=== PATIENT | female | born 1960 | race Caucasian/White ===

== ENCOUNTER 2019-09-08 13:55 | Emergency (ER) | payer SELFPAY ==
[2019-09-08 13:56] VITALS: BP 160/94; PULSE 73; RESP 18; TEMP 36.1; O2SAT 94; BMI 23.8
--- NOTE | 2019-09-08 14:08 | XRR_ITS ---
PROCEDURE INFORMATION: Exam: XR Right Wrist Exam date and time: 09/08/2019 2:20 PM Age: 59 years old Clinical indication: Injury or trauma; Initial encounter; Blunt trauma (contusions or hematomas; Right; Patient HX: C/O R wrist pain after fall last night TECHNIQUE: Imaging protocol: XR Right wrist. Views: 1 or 2 views. COMPARISON: No relevant prior studies available. FINDINGS: Bones/joints: Normal. No fracture evident. Soft tissues: Normal. XR/XR wrist RT 2V [id number] IMPRESSION: No acute findings.
--- NOTE | 2019-09-08 14:08 | XRR_ITS ---
PROCEDURE INFORMATION: Exam: XR Right Forearm Exam date and time: 09/08/2019 2:10 PM Age: 59 years old Clinical indication: Injury or trauma; Initial encounter; Blunt trauma (contusions or hematomas; Arm, lower; Right; Patient HX: C/O R wrist/forearm pain after fall last night TECHNIQUE: Imaging protocol: XR Right forearm. Views: 2 views. COMPARISON: No relevant prior studies available. FINDINGS: Bones/joints: Normal. No fracture evident. Soft tissues: Normal. XR/XR forearm RT 2V [id number] IMPRESSION: No acute findings.
[2019-09-08] MEDS: HYDROcodone-acetaminophen 5-325 mg Tablet 1 TAB PO (14:15)
--- NOTE | 2019-09-08 14:34 | W.ED.EXTPRO ---
HPI - Extremity Problem General: Chief complaint: Extremity Injury, Upper Stated complaint: arm pain Time Seen by Provider: 09/08/19 14:00 Source: patient Mode of arrival: ambulatory Limitations: no limitations History of Present Illness: HPI Narrative: fell while weedeating yesterday night onto right forearm Complaint: extremity pain Onset (ago): day(s) (1) Severity scale (1-10): 8 Review of Systems Musc: Reports: extremity swelling (right forearm) PFSH ED PFSH: Surgical History H/O section Hx of tonsillectomy Social History Smoking and tobacco status: former smoker Quit status (tobacco): has quit using tobacco Physical Exam Const: COMMON NORMALS: no apparent distress, oriented x3, no limitations and alert GENERAL APPEARANCE: cooperative and comfortable ORIENTATION/CONSCIOUSNESS: Yes awake, Yes oriented to person, Yes oriented to place and Yes oriented to time HENMT: COMMON NORMALS: normocephalic, head/scalp atraumatic, external ears normal, EAC's normal, TM's normal bilaterally and external nose normal HEAD & SCALP: normal to inspection, normocephalic and atraumatic FACE & SINUS: normal facial exam, sinuses nontender and face symmetric NOSE: external nose normal, nares normal and no nasal discharge EXTERNAL EAR: Yes external ears normal EXTERNAL AUDITORY CANAL: EAC's normal TYMPANIC MEMBRANE: TM's normal bilaterally MOUTH: oral and palatal mucosa normal, lip normal and tongue normal THROAT: posterior oropharynx normal, tonsils normal and uvula midline Eye: COMMON NORMALS: PERRL, EOMs intact bilaterally and conjunctivae normal GENERAL EYE: normal appearance of both eyes and normal light reflex EYELID: eyelids normal CONJUNCTIVA: Yes conjunctivae normal PUPIL: Yes PERRL EOM: Yes EOM abnormal DIRECT OPHTHALMOSCOPY: Yes normal light reflex Neck/C-Spine: COMMON NORMALS: full ROM, no lymphadenopathy, supple, no meningeal signs, no JVD and thyroid normal GENERAL: Yes normal visual inspection THYROID: thyroid normal CERVICAL SPINE: Yes cervical ROM normal and Yes normal cervical lordosis Lymph: LYMPHATIC: no lymphadenopathy noted Chest: COMMONS NORMALS: inspection of chest normal and palpation of chest normal Resp: COMMON NORMALS: normal respiratory effort, no retractions and clear to auscultation bilaterally AUSCULTATION: clear to auscultation bilaterally Cardio: COMMON NORMALS: no JVD, regular rate, regular rhythm, S1 normal heart sound, S2 normal heart sound, no gallops, no clicks, no murmurs, no rub and peripheral pulses 2+ throughout RATE: regular rate RHYTHM: regular rhythm HEART SOUNDS: S1 normal and S2 normal PERIPHERAL PULSES: pulses 2+ throughout GI: COMMON NORMALS: normal to inspection, nondistended, normoactive bowel sounds, soft to palpation, non-tender and no masses PALPATION: Yes soft : COMMON NORMALS: Yes no CVA tenderness and Yes external appearance normal BLADDER/KIDNEY EXAM: Yes no CVA tenderness Back/Pelvis: COMMON NORMALS: no CVA tenderness, thoracic and lumbar spine normal to inspection, no thoracic nor lumbar tenderness and thoraco-lumbar ROM normal Extremity: COMMON NORMALS: normal to inspection, full ROM, normal capillary refill, no joint enlargement, no clubbing, cyanosis or edema, no calf tenderness and no pedal edema GENERAL: Yes normal exam except as noted RIGHT UPPER EXTREMITY: Yes lower arm (pain and swelling ) EXTREMITY IMAGE (FRONT): 1. pain, swelling, mild deformity Neuro: COMMON NORMALS: oriented x3, moves all extremities, no focal motor deficits, no sensory deficits noted and gait normal SENSORIUM/ORIENTATION: Yes alert, Yes oriented to person, Yes oriented to place and Yes oriented to time MENINGEAL SIGNS: Yes no meningeal signs Psych: COMMON NORMALS: mental status grossly normal, thought process normal, cooperative, affect normal, speech normal and activity/motor behavior normal SPEECH: Yes normal speech THOUGHT PROCESS: normal thought process Skin: COMMON NORMALS: no rashes or lesions noted, no wounds and skin turgor normal GENERAL SKIN EXAM: no rashes or lesions noted and turgor normal Course ED course: Awaiting xrays at this time. Pain meds ordered. Pt able to move fingers but not without pain. Mild deformity noted in right forearm. Vital Signs: Vital signs: Vital Signs Temperature 97.0 F L 09/08/19 13:56 Pulse Rate 73 09/08/19 13:56 Respiratory Rate 18 09/08/19 13:56 Blood Pressure 160/94 09/08/19 13:56 Pulse Oximetry 94 09/08/19 13:56 MDM - Extremity (Nontraumatic) Imaging Data^: Other Xray: Radiologist's impression: [address] [address] XRay Report Signed Patient: Deya Fields Unit #: [id number] : 1960 Age/Sex: 59 / F ADM Date: 09/08/19 Loc: ER Room/Bed: Attending Dr: Ordering Provider/Ordering MD: Aileen Martínez TECHNOLOGY SALES SPECIALIST Date of Service: 09/08/19 Procedure(s): XR wrist RT 2V 74501 Accession Number(s): [id number] Report Number: [id number] PROCEDURE INFORMATION: Exam: XR Right Wrist Exam date and time: 09/08/2019 2:20 PM Age: 59 years old Clinical indication: Injury or trauma; Initial encounter; Blunt trauma (contusions or hematomas; Right; Patient HX: C/O R wrist pain after fall last night TECHNIQUE: Imaging protocol: XR Right wrist. Views: 1 or 2 views. COMPARISON: No relevant prior studies available. FINDINGS: Bones/joints: Normal. No fracture evident. Soft tissues: Normal. XR/XR wrist RT 2V [id number] IMPRESSION: No acute findings. Dictated By: Prashant Pantoja MD Signed By: Prashant Pantoja MD Signed Date/Time: 09/08/191433 DD/ [address] [place] [id number] XRay Report Signed Patient: Deya Fields Unit #: [id number] : 1960 Age/Sex: 59 / F ADM Date: 09/08/19 Loc: ER Room/Bed: Attending Dr: Ordering Provider/Ordering MD: Aileen Martínez TECHNOLOGY SALES SPECIALIST Date of Service: 09/08/19 Procedure(s): XR forearm RT 2V [id number] Accession Number(s): [id number] Report Number: [id number] PROCEDURE INFORMATION: Exam: XR Right Forearm Exam date and time: 09/08/2019 2:10 PM Age: 59 years old Clinical indication: Injury or trauma; Initial encounter; Blunt trauma (contusions or hematomas; Arm, lower; Right; Patient HX: C/O R wrist/forearm pain after fall last night TECHNIQUE: Imaging protocol: XR Right forearm. Views: 2 views. COMPARISON: No relevant prior studies available. FINDINGS: Bones/joints: Normal. No fracture evident. Soft tissues: Normal. XR/XR forearm RT 2V [id number] IMPRESSION: No acute findings. Dictated By: Prashant Pantoja MD Signed By: Prashant Pantoja MD Signed Discharge Plan Discharge Patient Disposition: Home, Self-Care Clinical Impression: Sprain and strain of wrist Condition: Stable Prescriptions: New tramadol 50 mg tablet 50 mg PO BID PRN (Reason: pain) Qty: 10 RF: 0 No Action albuterol sulfate [Ventolin HFA] 90 mcg/actuation HFA aerosol inhaler 2 - 4 puff INHALATION Q6H PRN (Reason: Shortness Of Breath) RF: 0 citalopram 40 mg tablet 40 mg PO DAILY RF: 0 buspirone 10 mg tablet 10 mg PO BID PRN (Reason: unknown) RF: 0 fluticasone propion-salmeterol [Advair Diskus] 250-50 mcg/dose blister with device 1 inh INHALATION BID Qty: 60 RF: 3 Referrals: Houston Cano FNP [Primary Care Provider] - Discharge Diet: Usual diet Discharge Activity: Increase activity as tolerated Activity Restrictions/Additional Instructions: Rest, ICE, elevate, and sling for the next 24 hours. Pain meds as needed for pain. Follow up with your doctor if not improving by next week. NSAIDs to help with swelling. Coding Level of Care Code ED Supervisor Costuming for Kaylynn Fwsvitlana Exam Comprehensive
[2019-09-08 15:18] VITALS: BP 136/80; PULSE 63; RESP 16; O2SAT 94
== END 2019-09-08 15:19 | disposition home or self-care (01) ==
PROVIDERS: Emergency Provider Nurse Practitioner Family; Family Provider Registered Nurse; PCP Registered Nurse
DX: S63.501A Unspecified sprain of right wrist, initial encounter (principal); S66.911A Strain of unspecified muscle, fascia and tendon at wrist and hand level, right hand, initial encounter; W19.XXXA Unspecified fall, initial encounter; Z87.891 Personal history of nicotine dependence
CPT/HCPCS: 12345; 73090; 73100; 99281; 99283

== ENCOUNTER → 2020-01-25 11:20 | Outpatient (BNVA) | payer SELFPAY | PROVIDERS: Family Provider Registered Nurse; PCP Registered Nurse; Visit Provider Nurse Practitioner Family | DX: E78.5 Hyperlipidemia, unspecified (principal); R03.0 Elevated blood-pressure reading, without diagnosis of hypertension; I10 Essential (primary) hypertension | CPT/HCPCS: 80053; 80061 ==

== ENCOUNTER → 2020-07-03 10:11 | Outpatient (BNVA) | payer OTHER, SELFPAY | PROVIDERS: Family Provider Registered Nurse; PCP Registered Nurse; Visit Provider Nurse Practitioner Family | DX: Z20.828 Contact with and (suspected) exposure to other viral communicable diseases (principal) | CPT/HCPCS: 87635 ==

== ENCOUNTER → 2020-08-14 11:19 | Outpatient (BNVA) | payer SELFPAY | PROVIDERS: Family Provider Registered Nurse; PCP Registered Nurse; Visit Provider Nurse Practitioner Family | DX: F41.9 Anxiety disorder, unspecified (principal); I10 Essential (primary) hypertension | CPT/HCPCS: 80053; 80061 ==

== ENCOUNTER → 2021-11-03 14:10 | Outpatient (BNVA) | payer OTHER, SELFPAY | PROVIDERS: Family Provider Registered Nurse; PCP Registered Nurse; Visit Provider Registered Nurse | DX: Z12.83 Encounter for screening for malignant neoplasm of skin (principal) | CPT/HCPCS: 88305 ==

== ENCOUNTER → 2022-02-23 13:42 | Outpatient (BNVA) | payer OTHER, SELFPAY | PROVIDERS: Family Provider Registered Nurse; PCP Student in an Organized Health Care Education/Training Program; Visit Provider Registered Nurse | DX: J30.2 Other seasonal allergic rhinitis (principal); R09.89 Other specified symptoms and signs involving the circulatory and respiratory systems; J06.9 Acute upper respiratory infection, unspecified | CPT/HCPCS: 87426 ==

== ENCOUNTER → 2022-03-12 14:18 | Outpatient (BNVA) | payer OTHER, SELFPAY | PROVIDERS: Family Provider Registered Nurse; PCP Student in an Organized Health Care Education/Training Program; Visit Provider Nurse Practitioner Family | DX: J02.9 Acute pharyngitis, unspecified (principal); J06.9 Acute upper respiratory infection, unspecified | CPT/HCPCS: 87071; 87880 ==

== ENCOUNTER → 2022-03-22 09:05 | Outpatient (BNVA) | payer OTHER, SELFPAY | PROVIDERS: Family Provider Registered Nurse; PCP Student in an Organized Health Care Education/Training Program; Visit Provider Specialist | DX: G56.03 Carpal tunnel syndrome, bilateral upper limbs (principal) | CPT/HCPCS: 73110 ==

== ENCOUNTER 2022-03-30 06:48 | Day surgery (SDC) | payer OTHER, SELFPAY ==
[2022-03-29 12:03] VITALS: BMI 26.5
--- NOTE | 2022-03-30 07:21 | P.ANESASSM_ITS ---
Pre-Anesthetic Assessment Height/Weight: Height 1.57 m Weight 65.771 kg O2 Del Method 03/30/22 07:10 Preop Diagnosis: Right carpal tunnel syndrome Operation Date: 03/30/22 08:20 Proposed Procedures p RIGHT CARPAL TUNNEL RELEASE 57067 G56.00(Right) - Aileen Munoz MD Familial anesthetic complications: None Was Beta Thalia taken within 24 hours: N/A Was Clonidine taken within 24 hours: N/A Last intake: Intake Last Liquid Date 03/29/22 Last Liquid Time 22:00 Last Solid Date 03/29/22 Last Solid Time 22:00 Social No alcohol and No tobacco former smoker Airway Mallampati: Class II Dentition: false Pulmonary Chronic Obstructive Pulmonary Disease CV/HEM Hypertension Neuropsych Anxiety and Neuropathy Anesthetic Plan ASA status: 3 Anesthesia: General Risk of > 500 ml blood loss (7ml/kg in children): No Medications/Allergies Home Medications Medication Instructions Recorded Confirmed Last Taken Type albuterol sulfate 90 mcg/actuation 2 - 4 puff inhalation Q6H PRN 05/23/19 03/29/22 Unknown History aerosol inhaler (Ventolin HFA) Shortness Of Breath fluticasone 250 mcg-salmeterol 50 See Rx Instructions .Route 12/05/20 03/29/22 Unknown Rx mcg/dose blistr powdr for .COMPLEX #60 ea inhalation (Advair Diskus) citalopram 40 mg tablet See Rx Instructions .Route 05/25/21 03/29/22 03/29/22 Rx .COMPLEX #30 tabs amlodipine 10 mg tablet See Rx Instructions .Route 01/04/22 03/29/22 03/29/22 Rx .COMPLEX #90 tabs albuterol sulfate 2.5 mg/3 mL 2.5 mg (3 mL) inhalation Q4H PRN 02/23/22 03/29/22 Unknown Rx (0.083 %) solution for nebulization bronchospasm 10 days #180 mL lisinopril 5 mg tablet 10 mg PO DAILY 03/29/22 03/29/22 03/29/22 History Allergies Allergy/AdvReac Type Severity Reaction Status Date / Time No Known Allergies Allergy Verified 03/29/22 11:58 COUNTS INCLUDE 234 BEDS AT THE [facility] Anesthesia Medical History Acute non-recurrent pansinusitis History of nonmelanoma skin cancer HTN (hypertension) with goal to be determined Surgical History H/O section Hx of tonsillectomy Family History Mother Hypertension Stroke Sister Lung disease Social History Smoking and tobacco status: former smoker Quit status (tobacco): has quit using tobacco 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
[2022-03-30] MEDS: sodium chloride 0.9% 1,000 ML 30 ML IV (07:30)
[2022-03-30] MEDS: CELEcoxib 200 mg Capsule 400 MG PO (07:30)
[2022-03-30] MEDS: acetaminophen 1,000 MG/100 ML PIGGYBACK 400 MG IV (07:30)
[2022-03-30 07:59] LABS: Anion Gap 16.1 (5-19); Blood Urea Nitrogen 13 mg/dL (8-23); Calcium 9.3 mg/dL (8.5-10.5); Carbon Dioxide 24 mmol/L (22-29); Chloride 102 mmol/L (98-107); Glomerular Filtration Rate 85.1 mL/min (90-130); Glucose 109 mg/dL (65-115); Osmolality Calculated 287 mOsm/kg (285-295); Potassium 4.1 mmol/L (3.5-5.1); Sodium 138 mmol/L (136-145)
[2022-03-30] MEDS: ceFAZolin 2,000 MG in sodium chloride 0.9% (plus) 50 ML 100 MG IV (08:33)
[2022-03-30 09:24] VITALS: BP 122/90; PULSE 83; RESP 20; TEMP 36.4; O2SAT 97
[2022-03-30 09:29] VITALS: BP 130/92; PULSE 88; RESP 16; O2SAT 96
[2022-03-30 09:34] VITALS: BP 117/83; PULSE 89; RESP 16; TEMP 36.2; O2SAT 96
--- NOTE | 2022-03-30 09:35 | W.PM.OPSUD ---
Surgery/Procedure H&P Update DATE OF PROCEDURE: March 30, 2022 DATE H&P PERFORMED: 03/22/22 H&P UPDATE INFORMATION: I have reviewed H&P completed within last 30 days, I have examined patient prior to procedure, No changes to prior documentation and H&P is in [facility] [place] [place] on date indicated PREOP DIAGNOSIS: Right carpal tunnel syndrome PLANNED PROCEDURE: Operation Date: 03/30/22 08:20 Proposed Procedures p RIGHT CARPAL TUNNEL RELEASE 63676 G56.00(Right) - Aileen Munoz MD Related Problem List Diagnoses (1) Carpal tunnel syndrome on right:
--- NOTE | 2022-03-30 09:49 | P.OP_ITS ---
Operative Report Date of procedure: March 30, 2022 Pre-op diagnosis: Right carpal tunnel syndrome Post-op diagnosis: Right carpal tunnel syndrome Post-op findings: Hourglass deformity to the median nerve with discoloration Procedure done: Right carpal tunnel release Pathology: none sent Surgeon: Aileen Munoz Senior Manager Creative Services: None Anesthesia: General (Per LMA, ASA 3) Estimated blood loss (mL): 2 Tourniquet time (min): 21 (At 250 mmHg) IV fluids (mL): 700 Urine output (mL): 0 (No Marina) Complications: None Findings: Purpleish discoloration and hourglass shape to the median nerve Condition: stable Disposition: PACU (Then discharged to same-day surgery for subsequent discharge home) Brief History: 62 year old female patient here today for right carpal tunnel release. She explains she has noticed symptoms for several months. She reports numbness, tingling and burning sensations in the palm of her hands. She explains the pain radiates into her bilateral wrist and forearms. She states she has numbness in the tips of her bilateral fingers. Primarily her thumb, index and long fingers. She states driving makes her pain worse. She states her pain wakes her up at night. She reports having to shake her hands to experience any relief. She states she has tried Celebrex with no relief. She states she has tried gloves and splinting with no relief. She currently works as a home health aid. She explains cooking and cleaning duties are difficult due to her symptoms. Patient has a recent NCS from 01/25/[address] Aguirre. Procedure: The patient was brought to the operating theater. The patient had a general anesthetic per LMA, ASA 2. The tourniquet was elevated to 250 mmHg for a total tourniquet time of 21 minutes. The patient was also given Ancef 2 g preoperatively. The arm was then prepped and draped with DuraPrep in usual fashion with the arm draped free. A surgical pause was performed. At the time, the surgical pause, we confirmed the site and side of surgery. We also confirmed the patient's identity, appropriate and timely administration of preoperative antibiotics, Ancef 2 g, and preoperative surgical markings. An incision was then made along the thenar crease. The incision crossed the wrist joint in a curvilinear fashion. Dissection continued through skin and soft tissues using a scalpel. The palmaris longus was identified along with the transverse carpal ligament. Each of these was released carefully to avoid injury to the median nerve. We were able to dissect gently into the carpal canal which was noted to be quite tight with significant compression across the median nerve. The nerve was visualized and was an hourglass shape. The canal was subsequently palpated to assure there was no bony encroachment upon the canal. There was a quite thickened fibrous tissue within the canal, and this was opened longitudinally as well. The canal was then palpated distally and proximally to assure that my small finger was passed easily without impingement. Finding this to be so, attention was directed to closure. The wound was irrigated with ropivacaine plain. It was then closed with 3-0 nylon in an interrupted mattress fashion. Sterile dressing was then placed consisting of Dermabond, OpSite, fluffed fluffs, sterile soft roll, and an Gio wrap. The tourniquet was released after 21 minutes. There were no complications. There were no specimens. The procedure was well tolerated. Plan is the patient will be discharged home. Related Problem List Diagnoses (1) Carpal tunnel syndrome on right:
[2022-03-30 09:52] VITALS: BP 121/88; PULSE 85; RESP 18; TEMP 36.6; O2SAT 97
[2022-03-30] MEDS: HYDROcodone-acetaminophen 5-325 mg Tablet 1 TAB PO (10:17)
--- NOTE | 2022-03-30 16:25 | ANE.PACU2 ---
Inpatient post-anesthesia follow up: Airway intact: Yes Vital signs: Temperature 97.8 F Pulse Rate 85 Respiratory Rate 18 Blood Pressure 121/88 Pulse Oximetry 97 Oxygen Delivery Me thod Room Air Oxygen Flow Rate 6 Fraction of Inspir ed Oxygen Hydration adequate: Yes Nausea and vomiting: No Pain level: 1 Mental status: Baseline
== END 2022-03-30 10:35 | disposition home or self-care (01) ==
PROVIDERS: Anesthesiology; PCP Student in an Organized Health Care Education/Training Program; Visit Provider Specialist
PROC: (CPT 64721; principal; 2022-03-30 08:10)
DX: G56.01 Carpal tunnel syndrome, right upper limb (principal); Z87.891 Personal history of nicotine dependence; I10 Essential (primary) hypertension; F41.9 Anxiety disorder, unspecified
CPT/HCPCS: 64721; 36415; 80048; J0131; J0690; J1100; J2405; J2704; J3010; J3490; J7030

== ENCOUNTER 2022-05-28 05:32 | Day surgery (SDC) | payer OTHER, SELFPAY ==
[2022-05-27 13:00] VITALS: BMI 28.5
[2022-05-28 06:25] VITALS: BP 127/76; PULSE 74; RESP 18; TEMP 37.1; O2SAT 92
[2022-05-28] MEDS: acetaminophen 1,000 MG/100 ML PIGGYBACK 400 MG IV (06:25)
[2022-05-28] MEDS: CELEcoxib 200 mg Capsule 400 MG PO (06:25)
[2022-05-28] MEDS: sodium chloride 0.9% 1,000 ML 30 ML IV (06:25)
--- NOTE | 2022-05-28 06:27 | ANES.PREANE2 ---
Pre-Anesthetic Assessment Height/Weight: Height 1.57 m Weight 70.76 kg O2 Del Method 05/28/22 05:56 Preop Diagnosis: Left carpal tunnel syndrome Operation Date: 05/28/22 07:00 Proposed Procedures p Carpal Tunnel Release LEFT 33375/G56.00(Left) - Aileen Munoz MD Familial anesthetic complications: None Was Beta Thalia taken within 24 hours: N/A Was Clonidine taken within 24 hours: N/A Last intake: Intake Last Liquid Date 05/27/22 Last Liquid Time 18:30 Last Solid Date 05/27/22 Last Solid Time 18:30 Social No alcohol and No tobacco former smoker Exam alert, oriented x 3, clear to auscultation bilaterally and regular rate & rhythm Airway Mallampati: Class II Dentition: false Pulmonary Chronic Obstructive Pulmonary Disease CV/HEM Hypertension Neuropsych Anxiety Anesthetic Plan ASA status: 3 Anesthesia: General Risk of > 500 ml blood loss (7ml/kg in children): No Medications/Allergies Home Medications Medication Instructions Recorded Confirmed Last Taken Type albuterol sulfate 2.5 mg/3 mL 2.5 mg (3 mL) inhalation Q4H PRN 02/23/22 05/27/22 Unknown Rx (0.083 %) solution for nebulization bronchospasm 10 days #180 mL albuterol sulfate 90 mcg/actuation 2 - 4 puff inhalation Q6H PRN 04/05/22 05/27/22 Unknown Rx aerosol inhaler (Ventolin HFA) Shortness Of Breath #6.7 grams lisinopril 10 mg tablet 10 mg PO DAILY #90 tabs 04/05/22 05/27/22 05/27/22 Rx sulfamethoxazole 800 1 tab PO BID 10 days #20 tabs 05/20/22 05/27/22 05/27/22 Rx mg-trimethoprim 160 mg tablet (Bactrim DS) ondansetron HCl 4 mg tablet 4 mg PO Q8H PRN nausea and 05/21/22 05/27/22 Unknown Rx vomiting #10 tabs amlodipine 10 mg tablet 10 mg PO DAILY 05/27/22 05/27/22 05/28/22 03:30 History citalopram 40 mg tablet 40 mg PO DAILY 05/27/22 05/27/22 05/27/22 History fluticasone 250 mcg-salmeterol 50 1 ea inhalation BID 05/27/22 05/27/22 Unknown History mcg/dose blistr powdr for inhalation (Advair Diskus) Allergies Allergy/AdvReac Type Severity Reaction Status Date / Time No Known Allergies Allergy Verified 05/27/22 12:53 Current Medications Generic Name Dose Route Start Last Admin Trade Name Freq PRN Reason Stop Dose Admin Sodium Chloride 1,000 mls @ 30 mls/hr 05/28/22 06:00 05/28/22 06:25 Sodium Chloride 0.9% IV 05/29/22 05:59 30 mls/hr .Q24H CHRISTIAN Administration PFSH Anesthesia Medical History Acute non-recurrent pansinusitis History of nonmelanoma skin cancer HTN (hypertension) with goal to be determined Surgical History H/O section Hx of tonsillectomy Family History Mother Hypertension Stroke Sister Lung disease Social History Smoking and tobacco status: former smoker Quit status (tobacco): has quit using tobacco 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
--- NOTE | 2022-05-28 06:57 | W.PM.OPSUD ---
Surgery/Procedure H&P Update DATE OF PROCEDURE: May 28, 2022 DATE H&P PERFORMED: 05/12/22 H&P UPDATE INFORMATION: I have reviewed H&P completed within last 30 days, I have examined patient prior to procedure, No changes to prior documentation and H&P is in [facility] [place] on date indicated PREOP DIAGNOSIS: Left carpal tunnel syndrome PLANNED PROCEDURE: Operation Date: 05/28/22 07:00 Proposed Procedures p Carpal Tunnel Release LEFT [id number]/G56.00(Left) - Aileen Munoz MD Related Problem List Diagnoses (1) Carpal tunnel syndrome, left:
[2022-05-28] MEDS: ceFAZolin 2,000 MG in sodium chloride 0.9% (plus) 50 ML 100 MG IV (07:01)
[2022-05-28 07:17] LABS: Blood Urea Nitrogen 21 mg/dL (8-23); Calcium 8.8 mg/dL (8.5-10.5); Carbon Dioxide 23 mmol/L (22-29); Chloride 101 mmol/L (98-107); Glomerular Filtration Rate 50.5 mL/min (90-130); Glucose 107 mg/dL (65-115); Osmolality Calculated 283 mOsm/kg (285-295); Sodium 135 mmol/L (136-145)
[2022-05-28 07:22] LABS: Anion Gap 15.7 (5-19); Potassium 4.7 mmol/L (3.5-5.1)
--- NOTE | 2022-05-28 07:24 | SUR.OPER ---
SORE NOTED DISTAL TO ELBOW LEFT ARM. OK TO PROCEED PER SURGEON.
--- NOTE | 2022-05-28 07:49 | SUR.OPER ---
DRAPE REMOVAL CAUSED SMALL SKIN TEARS. 2 OPSITES WERE PLACED.
[2022-05-28 07:54] VITALS: BP 113/76; PULSE 81; RESP 11; TEMP 36.1; O2SAT 98
[2022-05-28 07:55] VITALS: BP 117/66; PULSE 77; RESP 18; O2SAT 98
[2022-05-28 08:00] VITALS: BP 116/67; PULSE 76; RESP 13; O2SAT 96
--- NOTE | 2022-05-28 08:01 | PM.OP ---
Operative Report Date of procedure: May 28, 2022 Pre-op diagnosis: Left carpal tunnel syndrome Post-op diagnosis: Left carpal tunnel syndrome Post-op findings: Compression across the median nerve Procedure done: Left carpal tunnel release Pathology: none sent Surgeon: Aileen Munoz Anesthesia: General (Per LMA, ASA 3) Estimated blood loss (mL): 2 Tourniquet time (min): 24 (At 250 mmHg) IV fluids (mL): 400 Urine output (mL): 0 (No Marina) Complications: None Findings: Significant compression across the carpal canal consistent with diagnosis carpal tunnel syndrome Condition: stable Disposition: PACU (Then return to same-day surgery for discharge to home) Brief History: 62 year old female patient here today for left carpal tunnel release. Previously, she underwent right carpal tunnel release and has recovered nicely from this. She explains she has noticed symptoms for several months. She reports numbness, tingling and burning sensations in the palm of her hand. She explains the pain radiates into her left wrist and forearm. She states she has numbness in the tips of her thumb, index and long fingers on the left hand. She states driving makes her pain worse. She states her pain wakes her up at night. She reports having to shake her hand to experience any relief. She states she has tried Celebrex with no relief. She states she has tried gloves and splinting with no relief. She explains cooking and cleaning duties are difficult due to her symptoms. She understands the risks and complications of the surgical procedure and wishes to proceed. Procedure: The patient was brought to the operating theater. The patient had a general anesthetic per LMA, ASA 3. The tourniquet was elevated to 250 mmHg for a total tourniquet time of 24 minutes. The patient was also given Ancef 2 g preoperatively. The arm was then prepped and draped with DuraPrep in usual fashion with the arm draped free. A surgical pause was performed. At the time, the surgical pause, we confirmed the site and side of surgery. We also confirmed the patient's identity, appropriate and timely administration of preoperative antibiotics, Ancef 2 g, and preoperative surgical markings. An incision was then made along the thenar crease. The incision crossed the wrist joint in a curvilinear fashion. Dissection continued through skin and soft tissues using a scalpel. The palmaris longus was identified along with the transverse carpal ligament. Each of these was released carefully to avoid injury to the median nerve.? The transverse carpal ligament was significantly thickened.? We were able to dissect gently into the carpal canal which was noted to be quite tight with significant compression across the median nerve. The canal was subsequently palpated to assure there was no bony encroachment upon the canal. The canal was then palpated distally and proximally to assure that my small finger was passed easily without impingement. Finding this to be so, attention was directed to closure. The wound was irrigated with ropivacaine plain. It was then closed with 2-0 nylon in an interrupted mattress fashion. Sterile dressing was then placed consisting of Dermabond, OpSite, fluffed fluffs, sterile soft roll, and an Gio wrap. The tourniquet was released after 24 minutes. There were no complications. There were no specimens. The procedure was well tolerated. Plan is the patient will be discharged home. Related Problem List Diagnoses (1) Carpal tunnel syndrome, left:
[2022-05-28 08:07] VITALS: BP 106/66; PULSE 77; RESP 16; TEMP 36.2; O2SAT 99
[2022-05-28] MEDS: HYDROcodone-acetaminophen 10-325 mg Tablet 1 TAB PO (08:15)
[2022-05-28 08:25] VITALS: BP 134/81; PULSE 74; RESP 16; O2SAT 97
--- NOTE | 2022-05-28 19:46 | ANE.PACU2 ---
Inpatient post-anesthesia follow up: Airway intact: Yes Vital signs: Temperature 97.2 F Pulse Rate 74 Respiratory Rate 16 Blood Pressure 134/81 Pulse Oximetry 97 Oxygen Delivery Me thod Room Air Oxygen Flow Rate Fraction of Inspir ed Oxygen Hydration adequate: Yes Nausea and vomiting: No Pain level: 1 Mental status: Baseline
== END 2022-05-28 08:40 | disposition home or self-care (01) ==
PROVIDERS: Anesthesiology; PCP Student in an Organized Health Care Education/Training Program; Visit Provider Specialist
PROC: (CPT 64721; principal; 2022-05-28 07:00)
DX: G56.02 Carpal tunnel syndrome, left upper limb (principal); Z87.891 Personal history of nicotine dependence; J44.9 Chronic obstructive pulmonary disease, unspecified; I10 Essential (primary) hypertension; F41.9 Anxiety disorder, unspecified
CPT/HCPCS: 64721; 80048; J0131; J0690; J2370; J2704; J3010; J3490; J7030

== ENCOUNTER → 2023-02-25 11:24 | Outpatient (BNVA) | payer OTHER, SELFPAY | PROVIDERS: PCP Nurse Practitioner Family; Visit Provider Registered Nurse | DX: R21 Rash and other nonspecific skin eruption (principal); L23.9 Allergic contact dermatitis, unspecified cause | CPT/HCPCS: 86003; 86008 ==

== ENCOUNTER → 2023-03-02 08:38 | Outpatient (BNVA) | payer OTHER, SELFPAY | PROVIDERS: PCP Nurse Practitioner Family; Visit Provider Specialist | DX: S83.282A Other tear of lateral meniscus, current injury, left knee, initial encounter; X58.XXXA Exposure to other specified factors, initial encounter | CPT/HCPCS: 73560; 73565 ==

== ENCOUNTER → 2023-05-26 08:41 | Outpatient (BNVA) | payer MEDICAID, SELFPAY | PROVIDERS: PCP Registered Nurse; Visit Provider Registered Nurse | DX: J32.9 Chronic sinusitis, unspecified (principal); J01.40 Acute pansinusitis, unspecified; Z91.018 Allergy to other foods | CPT/HCPCS: 87400; 87426 ==

== ENCOUNTER → 2024-02-16 07:33 | Outpatient (BNVA) | payer MEDICAID, SELFPAY | PROVIDERS: PCP Registered Nurse; Visit Provider Registered Nurse | DX: R30.0 Dysuria (principal) | CPT/HCPCS: 81000; 87086 ==

== ENCOUNTER → 2024-02-27 10:19 | Outpatient (BNVA) | payer MEDICAID, SELFPAY | PROVIDERS: PCP Registered Nurse; Visit Provider Registered Nurse | DX: I10 Essential (primary) hypertension (principal); R60.0 Localized edema | CPT/HCPCS: 80053; 83880; 85025 ==

== ENCOUNTER → 2024-03-02 08:00 | Outpatient (BNVA) | payer MEDICAID, SELFPAY | PROVIDERS: PCP Registered Nurse; Visit Provider Registered Nurse | DX: R60.9 Edema, unspecified (principal) | CPT/HCPCS: 80048 ==

== ENCOUNTER → 2024-06-28 08:46 | Outpatient (BNVA) | payer MEDICAID, SELFPAY | PROVIDERS: PCP Registered Nurse; Visit Provider Registered Nurse | DX: J06.9 Acute upper respiratory infection, unspecified (principal) | CPT/HCPCS: 87400 ==

== ENCOUNTER → 2024-07-06 11:29 | Outpatient (BNVA) | payer MEDICAID, SELFPAY | PROVIDERS: PCP Registered Nurse; Visit Provider Registered Nurse | DX: J18.9 Pneumonia, unspecified organism (principal) | CPT/HCPCS: 85025 ==

== ENCOUNTER → 2024-07-16 07:51 | Outpatient (BNVA) | payer MEDICAID, SELFPAY | PROVIDERS: PCP Registered Nurse; Visit Provider Registered Nurse | DX: J18.9 Pneumonia, unspecified organism (principal) | CPT/HCPCS: 85025 ==

== ENCOUNTER 2024-07-18 09:18 | Outpatient (CLI) | payer MEDICAID, SELFPAY ==
--- NOTE | 2024-07-18 10:30 | CT_ITS ---
WS: [id number] CT chest w con* [id number] HISTORY: J98.4 - Other disorders of lung TECHNIQUE: Axial imaging performed through the thorax. Coronal and sagittal reformats are submitted. All CT scans at [facility] use at least one of these dose optimization techniques: automated exposure control; mA and/or kV adjustment per patient size (includes targeted exams where dose is matched to clinical indication); or iterative reconstruction. CONTRAST: Omnipaque 350; 100 mL IV. DLP: 294.45 mGy.cm COMPARISON: Chest radiograph 06/29/2024 Lungs and central airway: Focal subsegmental atelectasis in the RIGHT middle lobe. This corresponds to the abnormality seen on recent chest radiograph. There is additional linear atelectasis at the lingula. Several bilateral calcified granulomata. Pleura: Normal. No pleural effusion. Heart and pericardium: Normal size heart with no pericardial effusion. Mediastinum and lizette: Small hilar lymph nodes. Largest RIGHT paratracheal lymph node measures 1.8 cm. There is an additional higher RIGHT paratracheal lymph node measuring 1.4 cm. Additional slightly enlarged lymph node at the LEFT hilum, posterior to the proximal LEFT lower lobe pulmonary artery. Vessels: Normal size aortic and pulmonary artery. No coronary artery calcifications. Chest wall and lower neck: No soft tissue masses. Upper abdomen: No adrenal mass. Retained fecal material in the transverse colon and constipation. Osseous structures: No destructive process. CT/CT chest w con* [id number] IMPRESSION: 1. Subsegmental atelectasis in the RIGHT middle lobe. Corresponds to the abnor mality seen on recent chest radiograph from 06/29/2024. 2. Additional linear atelectasis at the lingula. 3. RIGHT paratracheal lymphadenopathy. This may be reactive adenopathy related to the patient's recent illness. Consider follow-up chest CT with IV contrast in 3 months after treatment to ensure the lymph nodes do not progress in size a nd the atelectasis remains the same and does not progress.
[2024-07-18 10:41] LABS: Blood Urea Nitrogen 11 mg/dL (8-23)
[2024-07-18] MEDS: iohexol 350 mg/mL 500 mL Btl (per mL) IV (10:49)
== END 2024-07-18 09:19 | disposition home or self-care (01) ==
LOC: RAD 09:18
PROVIDERS: PCP Registered Nurse; Visit Provider Registered Nurse
DX: J98.4 Other disorders of lung (principal); J98.11 Atelectasis; R59.0 Localized enlarged lymph nodes; J84.10 Pulmonary fibrosis, unspecified; K59.00 Constipation, unspecified
CPT/HCPCS: 71260; 82565; 84520

== ENCOUNTER → 2024-07-31 07:30 | Outpatient (BNVA) | payer MEDICAID, SELFPAY | PROVIDERS: PCP Registered Nurse; Visit Provider Registered Nurse | DX: J18.9 Pneumonia, unspecified organism (principal) | CPT/HCPCS: 85025 ==

== ENCOUNTER 2024-08-09 08:14 | Outpatient (CLI) | payer MEDICAID, SELFPAY ==
--- NOTE | 2024-08-09 09:15 | USCV_ITS ---
Deya Fields Age: 64 Gender: F : 1960 Exam Date: 08/09/2024 08:55 Ordering Phys: Houston Cano THREAD CUTTER Technologist: [place] [facility] [place]: cp BP: 130 / 70 HR: 72 Rhythm: Sinus Technical Quality: Adequate MEASUREMENTS (Male / Female) Normal Values 2D ECHO LV Diastolic Diameter PLAX 4.2 cm 4.2 - 5.9 / 3.9 - 5.3 cm IVS Diastolic Thickness 1.3 cm 0.6 - 1.0 / 0.6 - 0.9 cm IVS Systolic Thickness 1.7 cm LVPW Diastolic Thickness 1.9 cm 0.6 - 1.0 / 0.6 - 0.9 cm LVPW Systolic Thickness 1.6 cm LVOT Diameter 2.1 cm LV Ejection Fraction 2D Teich 70.3 % LV Ejection Fraction MOD 4C 61.5 % LV Ejection Fraction MOD 2C 62.4 % LV Ejection Fraction 2C AL 64.3 % LA Diameter 3.3 cm RA Systolic Volume 4C AL 48.5 ml RA Systolic Volume 4C MOD 44.2 ml LA Sys Volume AL 52.0 cm cubed LA Sys Volume Index AL 29.2 cm cubed/m squared Aorta at Sinotubular Diameter 2.9 cm IVC Diameter 2.0 cm M-MODE LA Ao Ratio MM 1.0 AV Cusp Separation MM 2.6 cm DOPPLER AV Peak Velocity 123.0 cm/s LVOT Peak Velocity 89.0 cm/s AV Area Cont Eq vti 2.6 cm squared AV Area Cont Eq pk 2.4 cm squared MV Peak Velocity 107.0 cm/s MV Area PHT 3.3 cm squared Mitral E to A Ratio 1.0 TV Peak Velocity 203.5 cm/s TR Peak Velocity 332.0 cm/s TR Peak Gradient 44.1 mmHg TV Peak E Velocity 108.0 cm/s PV Peak Velocity 75.0 cm/s FINDINGS Left Ventricle Normal left ventricular size and systolic function, EF 62%.mild left ventricular hypertrophy. No regional wall motion abnormalities. Right Ventricle The right ventricle is normal in size and function. Right Atrium The right atrium is normal in size. Left Atrium The left atrium is normal in size. Mitral Valve Moderate mitral annular calcification. Aortic Valve Thickened aortic valve. Tricuspid Valve Trace to mild tricuspid valve regurgitation. Pulmonic Valve Pulmonic valve not well visualized. Pericardium Normal pericardium without effusion. Aorta Normal ascending aorta dimension. IVC Normal inferior vena cava. CONCLUSIONS Normal left ventricular size and systolic function, EF 62%.mild left ventricular hypertrophy. No regional wall motion abnormalities. Moderate mitral annular calcification. Thickened aortic valve. Trace to mild tricuspid valve regurgitation. Estimated pulmonary artery peak systolic pressure of 47 mmHg (mild pulmonary hypertension) There is no pericardial effusion. Estimated pulmonary artery peak systolic pressure Dr Rigo Serrano MD FACC (Electronically Signed) Final Date: 10 August 2024 13:53 S
== END 2024-08-09 08:15 | disposition home or self-care (01) ==
PROVIDERS: PCP Registered Nurse; Visit Provider Registered Nurse
DX: R06.02 Shortness of breath (principal); I42.2 Other hypertrophic cardiomyopathy; I34.81 Nonrheumatic mitral (valve) annulus calcification; I35.8 Other nonrheumatic aortic valve disorders; I07.1 Rheumatic tricuspid insufficiency
CPT/HCPCS: 93306

== ENCOUNTER → 2024-10-26 08:25 | Outpatient (BNVA) | payer MEDICAID, SELFPAY | PROVIDERS: PCP Registered Nurse; Visit Provider Registered Nurse | DX: N89.8 Other specified noninflammatory disorders of vagina (principal) | CPT/HCPCS: 81000 ==

== ENCOUNTER → 2024-11-26 09:12 | Outpatient (BNVA) | payer MEDICAID, SELFPAY | PROVIDERS: PCP Registered Nurse; Visit Provider Registered Nurse | DX: Z13.1 Encounter for screening for diabetes mellitus (principal); I10 Essential (primary) hypertension; B37.31 Acute candidiasis of vulva and vagina | CPT/HCPCS: 80053; 80061; 83036; 85025 ==

== ENCOUNTER → 2024-12-11 11:32 | Outpatient (BNVA) | payer MEDICAID, SELFPAY | PROVIDERS: PCP Registered Nurse; Visit Provider Registered Nurse | DX: Z00.00 Encounter for general adult medical examination without abnormal findings (principal) | CPT/HCPCS: 87624 ==

== ENCOUNTER 2024-12-20 12:27 | Outpatient (CLI) | payer MEDICAID, SELFPAY ==
--- NOTE | 2024-12-20 13:30 | XR_ITS ---
WS: [id number] DEXA (DUAL ENERGY X-RAY ABSORPTIOMETRY) Bone mineral density was performed using a [employer] machine. HISTORY: M81.0 - Age-related osteoporosis without current patholog... COMPARISON: None available. Lumbar spine BMD (L1-L4): 1.023 g/cm2 T score: -1.3 Z score: 0.1 Total hip BMD: Left: 0.795 g/cm2. T score: -1.7 Z score: -0.7 Right: 0.832 g/cm2. T score: -1.4 Z score: -0.4 10 year probability of a major osteoporotic fracture is 7.8%. XR/XR DEXA axial skeleton* [id number] IMPRESSION: OSTEOPENIA based upon the WHO classification for females.
== END 2024-12-20 12:28 | disposition home or self-care (01) ==
LOC: RAD 12:28
PROVIDERS: PCP Registered Nurse; Visit Provider Registered Nurse
DX: Z13.820 Encounter for screening for osteoporosis (principal); M81.0 Age-related osteoporosis without current pathological fracture; M85.80 Other specified disorders of bone density and structure, unspecified site
CPT/HCPCS: 77080

== ENCOUNTER 2025-01-24 07:53 | Outpatient (CLI) | payer MEDICAID, SELFPAY ==
--- NOTE | 2025-01-24 07:59 | US_ITS ---
WS: [id number] BILATERAL 3D TOMOSYNTHESIS DIGITAL DIAGNOSTIC MAMMOGRAPHY WITH CAD CLINICAL INFORMATION: N63.0 - Unspecified lump in unspecified breast HISTORY: Outside chest CT 11/29/2024 allegedly demonstrated nodule lower outer quadrant LEFT breast. No comparison mammograms available. COMPARISON: Outside chest CT 11/29/2024 TECHNIQUE: Bilateral CC, MLO, and ML views. FINDINGS: Outside CT reviewed Scattered fibroglandular densities bilaterally. Vascular calcification. A few incidental punctate and lucent centered calcifications. Ovoid nodule lower outer quadrant LEFT breast likely corresponds to the CT findings. This measures approximately 8 mm. Ultrasound is pending. ULTRASOUND BREAST LEFT TECHNIQUE: Ultrasound left breast focused area of concern. CLINICAL INFORMATION: N63.0 - Unspecified lump in unspecified breast FINDINGS: Ultrasound lower outer quadrant in the area of concern. Ovoid solid hypoechoic nodule in the area of concern measuring 7 x 8 x 5 mm at the 5 o'clock position 3 cm from the nipple with a central focus of calcification. Solid nodule is indeterminate and recommend further evaluation with ultrasound-guided biopsy. US/US breast LT limited* [id number] IMPRESSION: DENSITY: There are scattered areas of fibroglandular density. BI-RADS: 4 - Suspicious Finding - Biopsy Should Be Considered. FOLLOW UP: US Guided Biopsy Recommended Recommend ultrasound-guided biopsy of the LEFT breast nodule
--- NOTE | 2025-01-24 09:00 | MM_ITS ---
WS: [id number] BILATERAL 3D TOMOSYNTHESIS DIGITAL DIAGNOSTIC MAMMOGRAPHY WITH CAD CLINICAL INFORMATION: N63.0 - Unspecified lump in unspecified breast HISTORY: Outside chest CT 11/29/2024 allegedly demonstrated nodule lower outer quadrant LEFT breast. No comparison mammograms available. COMPARISON: Outside chest CT 11/29/2024 TECHNIQUE: Bilateral CC, MLO, and ML views. FINDINGS: Outside CT reviewed Scattered fibroglandular densities bilaterally. Vascular calcification. A few incidental punctate and lucent centered calcifications. Ovoid nodule lower outer quadrant LEFT breast likely corresponds to the CT findings. This measures approximately 8 mm. Ultrasound is pending. ULTRASOUND BREAST LEFT TECHNIQUE: Ultrasound left breast focused area of concern. CLINICAL INFORMATION: N63.0 - Unspecified lump in unspecified breast FINDINGS: Ultrasound lower outer quadrant in the area of concern. Ovoid solid hypoechoic nodule in the area of concern measuring 7 x 8 x 5 mm at the 5 o'clock position 3 cm from the nipple with a central focus of calcification. Solid nodule is indeterminate and recommend further evaluation with ultrasound-guided biopsy. MM/MM diag BI tomosynthesis [id number] IMPRESSION: DENSITY: There are scattered areas of fibroglandular density. BI-RADS: 4 - Suspicious Finding - Biopsy Should Be Considered. FOLLOW UP: US Guided Biopsy Recommended Recommend ultrasound-guided biopsy of the LEFT breast nodule
== END 2025-01-24 07:54 | disposition home or self-care (01) ==
LOC: RAD 07:54
PROVIDERS: PCP Registered Nurse; Visit Provider Registered Nurse
DX: N63.20 Unspecified lump in the left breast, unspecified quadrant (principal)
CPT/HCPCS: 76642; 77062; G0279

== ENCOUNTER 2025-02-06 08:28 | Outpatient (CLI) | payer MEDICAID, SELFPAY ==
--- NOTE | 2025-02-06 11:45 | US_ITS ---
WS: [id number] ULTRASOUND-GUIDED LEFT BREAST BIOPSY HISTORY: LEFT breast mass at 5:00. COMPARISON: 01/24/2025 Procedure, risks and complications are explained to the patient. Medications are reviewed. Consent is obtained. The mass in the LEFT breast is localized with ultrasound. Mass localizes to 5:00, 3 cm from the nipple. Skin is cleansed with ChloraPrep and anesthetized with 1% buffered lidocaine. Small dermatome is made. Under sterile conditions mass is biopsied with a 14-gauge Achieve needle. Multiple core biopsies are performed. Material placed in formalin and sent to pathology for review. No complications encountered. Breast tissue marker ([employer] ultrasound enhanced ribbon): Single. Patient left the radiology suite with no complications. Patient is instructed to return to [facility] – [place] or call with any concerns. US/[place] [id number] IMPRESSION: 1. Uncomplicated core needle biopsy LEFT breast mass at 5:00. PATHOLOGY: Findings consistent with fibroepithelial lesion. No evidence of inva sive malignancy identified. Most suggestive of a fibroadenoma. RECOMMENDATION: Follow-up diagnostic LEFT breast mammogram and ultrasound in 6 months. Imaging and pathology findings are concurrent.
== END 2025-02-06 08:29 | disposition home or self-care (01) ==
LOC: RAD 08:29
PROVIDERS: PCP Registered Nurse; Visit Provider Registered Nurse
DX: N63.23 Unspecified lump in the left breast, lower outer quadrant (principal)
CPT/HCPCS: 19083; 88305

== ENCOUNTER → 2025-03-21 10:52 | Outpatient (BNVA) | payer MEDICAID, SELFPAY | PROVIDERS: PCP Registered Nurse; Visit Provider Registered Nurse | DX: R68.89 Other general symptoms and signs (principal) | CPT/HCPCS: 87400; 87426 ==

== ENCOUNTER → 2025-05-13 08:22 | Outpatient (BNVA) | payer MEDICAID, SELFPAY | PROVIDERS: PCP Registered Nurse; Visit Provider Registered Nurse | DX: J06.9 Acute upper respiratory infection, unspecified (principal) | CPT/HCPCS: 87400; 87426 ==